=== PATIENT | female | born 1945 | race Caucasian/White ===

== ENCOUNTER → 2016-11-10 | Outpatient (CLI) | payer MEDICARE, OTHER ==
--- NOTE | 2016-11-10 12:07 | REPMRS ---
Patient History The patient states she has not had a clinical breast exam in over a year. Patient is postmenopausal. Family history of breast cancer in maternal cousin. Priors done at [facility] Digital Mammo Screening Bilat: November 10, 2016 - Exam #: [id number] Bilateral CC and MLO view(s) were taken. Technologist: Kimberly Umaña, Technologist FINDINGS: There are scattered fibroglandular densities. There has been no change in the appearance of the mammogram from the prior studies. There is a mild amount of residual fibroglandular tissue which is fairly symmetric. There is no interval development of dominant mass, architectural distortion, or clustered microcalcification suggestive of malignancy. ASSESSMENT: BI-RADS/ACR category 1 mammogram. Negative. Recommendation Routine screening mammogram in 1 year (for women over age 40). This mammogram was interpreted with the aid of an FDA-approved computer-aided dectection system. Electronically Signed By: Enoch Noble MD 11/10/16 [id number]
== END ==
LOC: M RAD 10:37
PROVIDERS: ATTEND Family Medicine
DX: Z12.31 Encounter for screening mammogram for malignant neoplasm of breast (principal); Z78.0 Asymptomatic menopausal state

== ENCOUNTER → 2017-01-20 | Outpatient (CLI) | payer MEDICARE, OTHER ==
--- NOTE | 2017-01-20 10:47 | REP ---
Left lower extremity Duplex Doppler venous ultrasound: Real time compression and duplex Doppler interrogation of the left lower extremity deep venous system is performed. The left common femoral, superficial femoral and popliteal veins are fully compressible with transducer pressure and demonstrate normal spontaneous and phasic flow, without evidence of deep venous thrombosis. Impression: No evidence of deep venous thrombosis of the left lower extremity femoral popliteal venous system. Signed by Enoch Noble MD 01/20/2017 10:38 A
== END ==
LOC: M RAD 09:05
PROVIDERS: ATTEND Family Medicine
DX: M79.605 Pain in left leg (principal)

== ENCOUNTER → 2017-06-09 | Outpatient (CLI) | payer MEDICARE, OTHER ==
[2017-06-09 14:20] LABS: ESTIMATED AVERAGE GLUCOSE 111 MG/DL (60-110); HEMOGLOBIN A1c 5.5 %
[2017-06-09 14:22] LABS: ALBUMIN 3.9 GM/DL (3.2-5.2); ALBUMIN/GLOBULIN RATIO 1.63 (1.00-1.93); ALKALINE PHOSPHATASE 68 U/L (45-117); ALT/SGPT 23 U/L (12-78); ANION GAP 4 MEQ/L (8-16); AST/SGOT 15 U/L (7-37); BILIRUBIN,TOTAL 0.3 MG/DL (0.2-1.0); BLOOD UREA NITROGEN 14 MG/DL (7-18); CALCIUM LEVEL 8.8 MG/DL (8.8-10.2); CARBON DIOXIDE LEVEL 34 MEQ/L (21-32); CHLORIDE LEVEL 105 MEQ/L (98-107); CHOLESTEROL LEVEL 126 MG/DL (<200); CREATININE FOR GFR 0.74 MG/DL (0.55-1.02); FREE T4 1.01 NG/DL (0.76-1.46); GLOMERULAR FILTRATION RATE > 60.0 (>39); GLUCOSE, FASTING 115 MG/DL (83-110); HDL CHOLESTEROL 47 MG/DL (>40); LDL CHOLESTEROL 49.8 MG/DL (<100); NON-HDL-C 79 MG/DL; POTASSIUM SERUM 4.2 MEQ/L (3.5-5.1); SODIUM LEVEL 143 MEQ/L (136-145); TOTAL PROTEIN 6.3 GM/DL (6.4-8.2); TRIGLYCERIDES LEVEL 146 MG/DL (<150)
== END ==
LOC: M SMT 08:17
DX: E03.9 Hypothyroidism, unspecified (principal); I10 Essential (primary) hypertension; R73.01 Impaired fasting glucose; E78.2 Mixed hyperlipidemia
CPT/HCPCS: 84443

== ENCOUNTER 2017-06-10 18:47 | Emergency (ER) | payer MEDICARE, OTHER ==
[2017-06-10] MEDS: hydrALAZINE INJ 20 MG/ML VIAL IV ×2 (20:30→21:45)
[2017-06-10 21:10] LABS: ANION GAP 6 MEQ/L (8-16); BLOOD UREA NITROGEN 17 MG/DL (7-18); CALCIUM LEVEL 8.7 MG/DL (8.8-10.2); CARBON DIOXIDE LEVEL 31 MEQ/L (21-32); CHLORIDE LEVEL 102 MEQ/L (98-107); CREATININE FOR GFR 0.76 MG/DL (0.55-1.02); GLOMERULAR FILTRATION RATE > 60.0 (>39); GLUCOSE, FASTING 116 MG/DL (83-110); POTASSIUM SERUM 3.8 MEQ/L (3.5-5.1); SODIUM LEVEL 139 MEQ/L (136-145)
[2017-06-10 21:13] LABS: CPK CREATINE PHOSPHOKINASE 58 U/L (26-192); TROPONIN I < 0.02 NG/ML (< 0.10)
[2017-06-10 21:14] LABS: CK-MB VALUE MASS 2.2 NG/ML (0.0-3.6); MB/CK RELATIVE INDEX 3.79 (< OR =4)
[2017-06-10] MEDS: ONDANSETRON 4MG/2ML VIAL (J2405) IV (21:15)
[2017-06-10 21:16] LABS: BASO # 0.1 10^3/uL (0.0-0.2); BASO % 0.8 % (0.0-1.0); HEMATOCRIT 40.7 % (36.0-47.0); HEMOGLOBIN 13.9 g/dl (12.0-16.0); IMMATURE GRANULOCYTE % 0.5 % (0-0); LYMPH # 1.8 10^3/uL (1.5-4.5); LYMPH % 20.5 % (24.0-44.0); MEAN CORPUSCULAR HEMOGLOBIN 31.7 pg (27.0-33.0); MEAN CORPUSCULAR HGB CONC 34.2 g/dl (32.0-36.5); MEAN CORPUSCULAR VOLUME 92.7 fl (80.0-96.0); MONO # 0.8 10^3/uL (0.0-0.8); MONO % 9.8 % (0.0-5.0); NEUTROPHILS # 5.9 10^3/uL (1.8-7.7); NEUTROPHILS % 68.4 % (36.0-66.0); PLATELET COUNT, AUTOMATED 194 10^3/uL (150-450); RED BLOOD COUNT 4.39 10^6/uL (4.00-5.40); RED CELL DISTRIBUTION WIDTH 11.4 % (11.5-14.5); WHITE BLOOD COUNT 8.6 10^3/uL (4.0-10.0)
[2017-06-10 23:42] LABS: CK-MB VALUE MASS 2.4 NG/ML (0.0-3.6); CPK CREATINE PHOSPHOKINASE 52 U/L (26-192); MB/CK RELATIVE INDEX 4.61 (< OR =4); TROPONIN I < 0.02 NG/ML (< 0.10)
== END 2017-06-11 00:13 | disposition home or self-care (01) ==
LOC: M ED 06-11 00:13
DX: I10 Essential (primary) hypertension (principal); K21.9 Gastro-esophageal reflux disease without esophagitis; F33.9 Major depressive disorder, recurrent, unspecified; Z79.82 Long term (current) use of aspirin; Z79.899 Other long term (current) drug therapy; Z79.890 Hormone replacement therapy; Z98.890 Other specified postprocedural states; Z87.891 Personal history of nicotine dependence; Z80.1 Family history of malignant neoplasm of trachea, bronchus and lung
CPT/HCPCS: 93005

== ENCOUNTER → 2017-12-14 | Outpatient (REF) | payer MEDICARE, OTHER ==
[2017-12-14 12:10] LABS: BASO # 0.1 10^3/uL (0.0-0.2); BASO % 1.2 % (0.0-1.0); HEMATOCRIT 41.4 % (36.0-47.0); IMMATURE GRANULOCYTE % 0.4 % (0-3.0); LYMPH # 1.9 10^3/uL (1.5-4.5); LYMPH % 36.6 % (24.0-44.0); MEAN CORPUSCULAR HEMOGLOBIN 31.5 pg (27.0-33.0); MEAN CORPUSCULAR HGB CONC 33.8 g/dl (32.0-36.5); MEAN CORPUSCULAR VOLUME 93.2 fl (80.0-96.0); MONO # 0.5 10^3/uL (0.0-0.8); MONO % 9.4 % (0.0-5.0); NEUTROPHILS # 2.7 10^3/uL (1.8-7.7); NEUTROPHILS % 52.4 % (36.0-66.0); PLATELET COUNT, AUTOMATED 188 10^3/uL (150-450); RED BLOOD COUNT 4.44 10^6/uL (4.00-5.40); RED CELL DISTRIBUTION WIDTH 11.7 % (11.5-14.5); WHITE BLOOD COUNT 5.2 10^3/uL (4.0-10.0)
[2017-12-14 12:26] LABS: ALBUMIN 3.6 GM/DL (3.2-5.2); ALBUMIN/GLOBULIN RATIO 1.57 (1.00-1.93); ALKALINE PHOSPHATASE 60 U/L (45-117); ALT/SGPT 31 U/L (12-78); ANION GAP 7 MEQ/L (8-16); AST/SGOT 18 U/L (7-37); BILIRUBIN,TOTAL 0.4 MG/DL (0.2-1.0); BLOOD UREA NITROGEN 14 MG/DL (7-18); CALCIUM LEVEL 8.7 MG/DL (8.8-10.2); CARBON DIOXIDE LEVEL 32 MEQ/L (21-32); CHLORIDE LEVEL 105 MEQ/L (98-107); CHOLESTEROL LEVEL 106 MG/DL (<200); CHOLESTEROL RISK RATIO 2.355 (<5); CREATININE FOR GFR 0.84 MG/DL (0.55-1.30); FREE T4 1.05 NG/DL (0.76-1.46); GLOMERULAR FILTRATION RATE > 60.0 (>39); GLUCOSE, FASTING 96 MG/DL (70-100); HDL CHOLESTEROL 45 MG/DL (>40); LDL CHOLESTEROL 39.4 MG/DL (<100); NON-HDL-C 61 MG/DL; POTASSIUM SERUM 3.8 MEQ/L (3.5-5.1); SODIUM LEVEL 144 MEQ/L (136-145); TOTAL PROTEIN 5.9 GM/DL (6.4-8.2); TRIGLYCERIDES LEVEL 108 MG/DL (<150)
[2017-12-14 14:17] LABS: ESTIMATED AVERAGE GLUCOSE 120 MG/DL (60-110); HEMOGLOBIN A1c 5.8 %
== END ==
LOC: M LABDRAW1 11:44
DX: I10 Essential (primary) hypertension (principal); E03.9 Hypothyroidism, unspecified; R73.01 Impaired fasting glucose; K21.9 Gastro-esophageal reflux disease without esophagitis; E78.2 Mixed hyperlipidemia
CPT/HCPCS: 84443

== ENCOUNTER → 2018-12-03 | Outpatient (REF) | payer MEDICARE, OTHER ==
[~2018-12-03] MED LIST: ASPI81TA85 PO; ATOR1TAB21 PO; CALTTAB5 PO; CITA20TA6 PO; HYDR25TAB PO; LEVO25TA5 PO; RANI15TA PO; VALS1TAB49 PO
[2018-12-03 11:44] LABS: BASO # 0.1 10^3/uL (0.0-0.2); EOS % 0.2 % (0.0-3.0); HEMATOCRIT 43.6 % (36.0-47.0); HEMOGLOBIN 14.3 g/dl (12.0-15.5); LYMPH % 39.6 % (24.0-44.0); MEAN CORPUSCULAR HGB CONC 32.8 g/dl (32.0-36.5); MEAN CORPUSCULAR VOLUME 94.6 fl (80.0-96.0); MONO # 0.5 10^3/uL (0.0-0.8); MONO % 8.9 % (0.0-5.0); NEUTROPHILS # 2.6 10^3/uL (1.8-7.7); NEUTROPHILS % 50.1 % (36.0-66.0); PLATELET COUNT, AUTOMATED 190 10^3/uL (150-450); RED BLOOD COUNT 4.61 10^6/uL (4.00-5.40); WHITE BLOOD COUNT 5.1 10^3/uL (4.0-10.0)
[2018-12-03 11:59] LABS: HEMOGLOBIN A1c 6.2 %
[2018-12-03 12:01] LABS: ALBUMIN 3.9 GM/DL (3.2-5.2); ALT/SGPT 29 U/L (12-78); BILIRUBIN,TOTAL 0.4 MG/DL (0.2-1.0); BLOOD UREA NITROGEN 18 MG/DL (7-18); CALCIUM LEVEL 8.4 MG/DL (8.8-10.2); CARBON DIOXIDE LEVEL 31 MEQ/L (21-32); CHLORIDE LEVEL 104 MEQ/L (98-107); FREE T4 1.02 NG/DL (0.76-1.46); GLOMERULAR FILTRATION RATE > 60.0 (>39); GLUCOSE, FASTING 106 MG/DL (70-100); POTASSIUM SERUM 4.2 MEQ/L (3.5-5.1); SODIUM LEVEL 142 MEQ/L (136-145); TOTAL PROTEIN 6.4 GM/DL (6.4-8.2)
== END ==
LOC: M LABDRAW1 07:53
PROVIDERS: ATTEND Family Medicine
DX: I10 Essential (primary) hypertension (principal); E03.9 Hypothyroidism, unspecified; R73.01 Impaired fasting glucose; K21.9 Gastro-esophageal reflux disease without esophagitis